=== PATIENT | female | born 1940 | race Caucasian/White ===

== ENCOUNTER 2021-04-18 11:07 | Emergency (ER) | payer MEDICARE, OTHER ==
[~2021-04-18] VITALS: Ht 165.1 cm; Wt 79.4 kg
[2021-04-18] MEDS ORDERED: VERAPAMIL SR180 MG PO (11:51)
[2021-04-18] MEDS ORDERED: LOSARTAN POTASS50 MG PO (11:51)
[2021-04-18] MEDS ORDERED: OMEPRAZOLE20 MG PO (11:51)
[2021-04-18] MEDS ORDERED: VENTOLIN HFA18 GM INH (11:52)
[2021-04-18] MEDS ORDERED: DULERA 100 MCG/13 GM INH (11:53)
[2021-04-18] MEDS ORDERED: ALLEGRA ALLERG180 MG PO (11:54)
--- NOTE | 2021-04-18 18:55 | EKG ---
[facility] [address] [facility] [place], [place] [address] Signed Normal sinus rhythm Normal ECG No previous ECGs available Confirmed by ALEM MENDEZ DO ([id number]) on 04/18/2021 6:55:03 PM Electronically Signed By: ALEM MENDEZ DO 04/18/21 1855 PATIENT NAME: MARQUITA MORIN Electrocardiogram DATE OF : 42 PHYSICIAN: ALEM MENDEZ DO REPORT #: [id number] REPORT IS CONFIDENTIAL AND NOT TO BE RELEASED WITHOUT AUTHORIZATION
== END 2021-04-18 15:14 | disposition home or self-care (01) ==
LOC: ED 11:07
DX: E86.0 Dehydration (principal); R42 Dizziness and giddiness; I10 Essential (primary) hypertension; E11.9 Type 2 diabetes mellitus without complications; Z79.899 Other long term (current) drug therapy
CPT/HCPCS: 36415; 70470; 80053; 81001; 84484; 85025; 93005; 93010; 99284-25; J7030; Q9967

== ENCOUNTER 2021-06-26 02:20 | Emergency (ER) | payer MEDICARE, OTHER ==
[~2021-06-26] VITALS: Ht 165.1 cm; Wt 75.8 kg
[~2021-06-26 02:20] MED LIST: ALLEGRA ALLERG180 MG PO; DULERA 100 MCG/13 GM INH; LOSARTAN POTASS50 MG PO; OMEPRAZOLE20 MG PO; VENTOLIN HFA18 GM INH; VERAPAMIL SR180 MG PO
[2021-06-26] MEDS ORDERED: BACLOFEN10 MG PO (02:38)
[2021-06-26] MEDS ORDERED: ROSUVASTATIN CA20 MG PO (02:39)
[2021-06-26] MEDS ORDERED: ONDANSETRON ODT4 MG PO (05:17)
[2021-06-26] MEDS ORDERED: CYCLOBENZAPRINE10 MG PO (05:17)
--- NOTE | 2021-06-26 07:35 | EKG ---
[facility] [address] [facility] [place] [address] Signed Normal sinus rhythm Left axis deviation Nonspecific ST abnormality Abnormal ECG When compared with ECG of 18-APR-2021 12:40, No significant change was found Confirmed by AYANA ELDRIDGE MD ([id number]) on 06/26/2021 7:34:51 AM Electronically Signed By: AYANA ELDRIDGE MD 06/26/21 0735 PATIENT NAME: MARQUITA MORIN ALFREDO Electrocardiogram DATE OF : 42 PHYSICIAN: AYANA ELDRIDGE MD REPORT #: [id number] REPORT IS CONFIDENTIAL AND NOT TO BE RELEASED WITHOUT AUTHORIZATION
[2021-06-27] MEDS ORDERED: CEPHALEXIN500 M1 PO (08:14)
[2021-06-27] MEDS ORDERED: NEURONTIN300 MG PO (08:25)
== END 2021-06-26 05:42 | disposition home or self-care (01) ==
LOC: ED 02:20
DX: R07.89 Other chest pain (principal); M54.41 Lumbago with sciatica, right side; Z85.828 Personal history of other malignant neoplasm of skin; I10 Essential (primary) hypertension; E11.9 Type 2 diabetes mellitus without complications; Z88.2 Allergy status to sulfonamides; Z88.1 Allergy status to other antibiotic agents; Z79.899 Other long term (current) drug therapy
CPT/HCPCS: 36415; 71045; 80053; 83735; 84484; 85025; 93005; 93010; 99285-25; A9270

== ENCOUNTER 2021-06-27 05:08 | Emergency (ER) | payer MEDICARE, OTHER ==
[~2021-06-27] VITALS: Ht 165.1 cm; Wt 75.8 kg
[~2021-06-27 05:08] MED LIST changes: +BACLOFEN10 MG PO; +CYCLOBENZAPRINE10 MG PO; +ONDANSETRON ODT4 MG PO; +ROSUVASTATIN CA20 MG PO
[2021-06-27] MEDS ORDERED: CEPHALEXIN500 M1 PO (08:14)
[2021-06-27] MEDS ORDERED: NEURONTIN300 MG PO (08:25)
== END 2021-06-27 08:40 | disposition home or self-care (01) ==
LOC: ED 05:08
DX: N39.0 Urinary tract infection, site not specified (principal); M54.50 Low back pain, unspecified; Z85.828 Personal history of other malignant neoplasm of skin; I10 Essential (primary) hypertension; E11.9 Type 2 diabetes mellitus without complications; Z88.2 Allergy status to sulfonamides; Z88.1 Allergy status to other antibiotic agents; Z79.899 Other long term (current) drug therapy
CPT/HCPCS: 36415; 74176; 80053; 81001; 85025; 87088; 96365; 99284-25; A9270; J0696; J8540

== ENCOUNTER 2021-09-01 11:47 | Emergency (ER) | payer MEDICARE, OTHER ==
[~2021-09-01] VITALS: Ht 165.1 cm; Wt 75.8 kg
[~2021-09-01 11:47] MED LIST changes: +CEPHALEXIN500 M1 PO; +NEURONTIN300 MG PO
[2021-09-01] MEDS ORDERED: MACROBID 100 M100 MG PO (12:13)
[2021-09-01] MEDS ORDERED: HYDROCODON-ACE1 EA10 PO (13:49)
== END 2021-09-01 14:00 | disposition home or self-care (01) ==
LOC: ED 11:47
DX: R07.89 Other chest pain (principal); J40 Bronchitis, not specified as acute or chronic; I10 Essential (primary) hypertension; E11.9 Type 2 diabetes mellitus without complications; Z88.2 Allergy status to sulfonamides; Z88.1 Allergy status to other antibiotic agents; Z79.899 Other long term (current) drug therapy
CPT/HCPCS: 36415; 71045; 80053; 81001; 83690; 85025; 87502; 96374; 99285-25; C9803; J1885; U0003

== ENCOUNTER 2022-12-11 09:08 | Emergency (ER) | payer MEDICARE, OTHER ==
[~2022-12-11] VITALS: Ht 165.1 cm; Wt 77.0 kg
--- OUTSIDE RECORDS SUMMARY | ~2022-12-11 | XMS | Continuity of Care Document ---
Demographics + + + | Address | [address] | | | [place] [address] | + + + | Preferred Language | Unknown | + + + | Marital Status | Never | + + + | Protestant Affiliation | Unknown | + + + | Race | White | + + + | Ethnic Group | Not or | + + + Author + + + | Author | [facility] | + + + | Organization | [facility] | + + + | Address | [address] | | | [place], [place] [address] | + + + | Phone | | + + + Care Team Providers + + + + | Care Structural Steel Detailer Name | Role | Phone | + + + + Unavailable | Unavailable | + + + + Allergies No information. Encounters No information. Functional Status No information. Immunizations No information. Medications No information. Problems + + + + | date | description | facility | + + + + | 2022-10-08 08:31 | [facility] | [facility] | + + + + | 2022-11-07 06:50 | Dizziness and giddiness | [facility] | + + + + Procedures No information. Results/Labs No information. Social History +--------+ + + | date | description | facility | +--------+ + + Vital Signs No information."
[~2022-12-11 09:08] MED LIST changes: +HYDROCODON-ACE1 EA10 PO; +MACROBID 100 M100 MG PO
[2022-12-11] MEDS ORDERED: AMLODIPINE BESYL5 MG PO (09:24)
[2022-12-11] MEDS ORDERED: B COMPLEX1 EACH PO (09:25)
[2022-12-11] MEDS ORDERED: D3-5000125 MCG PO (09:25)
[2022-12-11] MEDS ORDERED: VITAMIN B122500 MCG PO (09:26)
[2022-12-11 09:40] LABS: BASOPHILS 0.7 % (0-2); EOSINOPHILS 4.9 % (0-6); HEMATOCRIT 36.7 % (35.0-50.0); HEMOGLOBIN 12.1 g/dL (12.0-18.0); LYMPHOCYTES 32.6 % (24-44); MCH 30.5 (27-36); MCHC 33.1 g/dl (30-36); MCV 92.1 fl (81-99); MONOCYTES 6.2 % (0-12); NEUTROPHILS 55.6 % (39-80); PLATELET COUNT 229 K/uL (140-440); RBC 3.98 M/ul (4.3-5.7); RDW 13.8 (10.5-15.0)
[2022-12-11 10:03] LABS: ALBUMIN 3.5 g/dL (3.4-5.0); ALBUMIN/GLOBULIN RATIO 0.92 (1.1-2.4); ANION GAP 13.5 (7-21); BILIRUBIN, TOTAL 0.4 ng/dL (0.2-1.0); BUN/CREATININE RATIO 14.54 (6.0-28.6); CREATININE, SERUM 1.1 mg/dL (0.55-1.02); POTASSIUM 4.5 mmol/L (3.5-5.1); PROTEIN, TOTAL 7.3 g/dL (6.4-8.2)
[2022-12-11 10:21] LABS: INFLUENZA B NAA NEGATIVE (NEGATIVE); RESPIRATORY SYNCYTIAL VIR NAA NEGATIVE (NEGATIVE)
[2022-12-11] MEDS ORDERED: DOXYCYCLINE HY100 M3 PO (11:37)
[2022-12-11] MEDS ORDERED: PREDNISONE20 MG PO (11:37)
[2022-12-11 12:20] VITALS: BP 163/72
--- NOTE | 2022-12-12 12:15 | EKG ---
[facility] [address] [facility] [place] [address] Signed Normal sinus rhythm Left axis deviation Abnormal ECG When compared with ECG of 26-JUN-2021 02:23, No significant change was found Confirmed by APPLE REYNOLDS MD ([id number]) on 12/12/2022 12:15:39 PM Electronically Signed By: APPLE REYNOLDS 12/12/22 1215 PATIENT NAME: LAURA MORINRA FUENTES Electrocardiogram DATE OF : 42 PHYSICIAN: APPLE REYNOLDS REPORT #: [id number] REPORT IS CONFIDENTIAL AND NOT TO BE RELEASED WITHOUT AUTHORIZATION
== END 2022-12-11 12:22 | disposition home or self-care (01) ==
LOC: ED 09:08
PROVIDERS: Internal Medicine
DX: J45.901 Unspecified asthma with (acute) exacerbation (principal); J18.9 Pneumonia, unspecified organism; I10 Essential (primary) hypertension; E11.9 Type 2 diabetes mellitus without complications; Z88.2 Allergy status to sulfonamides; Z88.1 Allergy status to other antibiotic agents; Z79.899 Other long term (current) drug therapy
CPT/HCPCS: 36415; 71045; 71260; 80053; 83880; 84484; 85025; 87502; 93005; 93010; 94640; 99285-25; C9803; J0360; J0696; Q9967; U0002

== ENCOUNTER 2023-03-02 07:49 | Emergency (ER) | payer MEDICARE, OTHER ==
[~2023-03-02 07:49] MED LIST changes: +ACETAMINOPHEN500 M1 PO; +AFRIN15 M1; +AMLODIPINE BESYL5 MG PO; +B COMPLEX1 EACH PO; +D3-5000125 MCG PO; +DOXYCYCLINE HY100 M3 PO; +PREDNISONE20 MG; +PREDNISONE20 MG PO; +VITAMIN B122500 MCG PO
[2023-03-02] MEDS ORDERED: K-TAB ER20 MEQ PO (08:46)
[2023-03-02] MEDS ORDERED: HYDROCHLOROTH12.5 MG PO (08:46)
[2023-03-02 08:58] VITALS: BP 162/75
== END 2023-03-02 08:59 | disposition home or self-care (01) ==
LOC: ED 07:49
DX: I10 Essential (primary) hypertension (principal); R42 Dizziness and giddiness; C76.3 Malignant neoplasm of pelvis; E11.9 Type 2 diabetes mellitus without complications; J45.909 Unspecified asthma, uncomplicated; Z88.1 Allergy status to other antibiotic agents; Z88.2 Allergy status to sulfonamides; Z79.899 Other long term (current) drug therapy; Z87.891 Personal history of nicotine dependence; Z79.51 Long term (current) use of inhaled steroids
CPT/HCPCS: 99283

== ENCOUNTER 2023-09-02 09:28 | Emergency (ER) | payer MEDICARE, OTHER ==
[~2023-09-02] VITALS: Ht 165.1 cm; Wt 67.0 kg
[~2023-09-02 09:28] MED LIST changes: +AMLODIPINE BESY10 MG PO; -AMLODIPINE BESYL5 MG PO; +HYDROCHLOROTH12.5 MG PO; +K-TAB ER20 MEQ PO; +LIDODERM1 EACH TOP; +OXYCODONE HCL5 MG PO
[2023-09-02] MEDS ORDERED: LIDOCAINE HCL 4% 1 EACH PATCH TD ONE (10:15)
[2023-09-02] MEDS ORDERED: IBUPROFEN 400 MG TAB PO ONE (10:15)
[2023-09-02 10:35] VITALS: BP 158/79
== END 2023-09-02 10:36 | disposition home or self-care (01) ==
LOC: ED 09:28
DX: M54.9 Dorsalgia, unspecified (principal); I10 Essential (primary) hypertension; E11.9 Type 2 diabetes mellitus without complications; J45.909 Unspecified asthma, uncomplicated; Z88.2 Allergy status to sulfonamides; Z88.1 Allergy status to other antibiotic agents; Z79.899 Other long term (current) drug therapy
CPT/HCPCS: A9270